=== PATIENT | female | born 1985 | race Caucasian/White ===

== ENCOUNTER 2019-11-01 23:40 | Emergency (ER) | payer SELFPAY ==
[~2019-11-01] VITALS: Ht 167.6 cm; Wt 59.0 kg
[2019-11-01 23:51] VITALS: BP 127/73
--- NOTE | 2019-11-02 00:02 | NUR ---
Patient does not wish to proceed with medical care recommended by Dr. Zimmerman. Patient given information related to possible complications, up to and including , which could occur as a result of leaving the hospital at this time. Patient verbalizes understanding of risks involved due to leaving against medical advice. Patient has signed AMA form.
== END 2019-11-02 00:03 | disposition home or self-care (01) ==
LOC: ER 23:46
DX: R22.41 Localized swelling, mass and lump, right lower limb (principal)